=== PATIENT | male | born 2000 | race Asian ===

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

== ENCOUNTER 2022-10-23 07:46 | Outpatient (REF) | payer OTHER, SELFPAY ==
[2022-10-23 08:14] LABS: MANUAL DIFF FLAG NO
[2022-10-23 08:35] LABS: Basophils Absolute Auto 0.1 X10*3/uL (0.0-0.2); Basophils Percent Auto 0.5 % (0-2); Eosinophils Absolute Auto 0.3 X10*3/uL (0.0-0.4); Eosinophils Percent Auto 2.6 % (0-4); Hematocrit 54.1 % (42.0-52.0); Hemoglobin 18.7 g/dl (14.0-18.0); Imm Gran Abs Auto 0.03 X10*3/uL (0.00-0.03); Imm Gran Pct Auto 0.3 % (0.0-0.4); Lymphocytes Absolute Auto 2.3 X10*3/uL (1.2-4.9); Lymphocytes Percent Auto 22.1 % (20-40); Mean Corpuscular HGB Conc 34.6 g/dl (31.0-36.0); Mean Corpuscular Hemoglobin 28.9 pg (27.0-33.0); Mean Corpuscular Volume 83.7 fL (80.0-98.0); Mean Platelet Volume 9.9 fL (9.4-12.4); Monocytes Absolute Auto 0.8 X10*3/uL (0.1-1.2); Monocytes Percent Auto 7.6 % (2-11); Neutrophils Absolute Auto 7.1 x10*3/uL (2.0-8.3); Neutrophils Percent Auto 66.9 % (45-73); Platelet Count 256 X10*3/uL (160-400); Red Blood Count 6.46 X10*6/uL (4.60-5.80); Red Cell Distribution Width 12.1 % (11.0-16.0); White Blood Count 10.6 X10*3/uL (4.8-10.8)
[2022-10-23 09:14] LABS: Alanine Aminotransferase 31 U/L (0-40); Albumin Level 4.7 g/dL (3.5-5.0); Alkaline Phosphatase 92 U/L (39-117); Anion Gap 14 (12-20); Aspartate Amino Transferase 20 U/L (5-37); Blood Urea Nitrogen 11 mg/dL (9-16); Calcium 9.8 mg/dL (8.4-10.2); Carbon Dioxide 27 mmol/L (22-29); Chloride 102 mmol/L (96-108); Cholesterol 214 mg/dL; Estimated Glomerular Filt Rate > 60; Glucose Fasting 90 mg/dL (60-99); HDL Cholesterol 39 mg/dL; LDL Cholesterol Calculated 151 mg/dl; Potassium 4.2 mmol/L (3.3-5.1); Sodium 139 mmol/L (135-145); Total Protein 8.1 g/dL (6.5-8.0); Triglycerides 121 mg/dL
[2022-10-23 09:22] LABS: Appearance Urine Clear; Color Urine Yellow; Glucose Urine UA Negative (Negative); Leukocyte Esterase Urine Negative (Negative); Nitrite Urine Negative (Negative); PH 5.5 (5.0-9.0); Specific Gravity - Urine 1.025 (1.005-1.025); Urine Blood Negative (Negative); Urine Ketones Negative (Negative); Urine Protein Trace mg/dL (Neg-Trace)
[2022-10-23 09:36] LABS: TSH reflex Free T4 1.89 uIU/mL (0.32-4.0)
== END 2022-10-23 07:47 | disposition home or self-care (01) ==
LOC: HO.LAB 07:46
PROVIDERS: PCP Nurse Practitioner Family; Visit Provider Nurse Practitioner Family
DX: Z00.00 Encounter for general adult medical examination without abnormal findings (principal)
CPT/HCPCS: 36415; 80053; 80061; 81003; 84443; 85025

== ENCOUNTER 2022-11-04 12:07 | Outpatient (REF) | payer OTHER, SELFPAY ==
--- NOTE | ~2022-11-04 | XR_ITS ---
EXAMINATION: XR FOOT, LEFT CLINICAL INFORMATION: Left foot pain COMPARISON: None TECHNIQUE: AP, lateral, and oblique views of the left foot. FINDINGS: The bones and soft tissues are normal. No fracture. Alignment is anatomic. Joint spaces are maintained. XR/XR foot LT min 3V IMPRESSION: Normal left foot.
[2022-11-04 14:34] LABS: Uric Acid 8.7 mg/dL (3.4-7.0)
== END 2022-11-04 12:08 | disposition home or self-care (01) ==
LOC: HO.HMGCX 12:07
PROVIDERS: PCP Nurse Practitioner Family; Visit Provider Nurse Practitioner Family
DX: M79.672 Pain in left foot (principal)
CPT/HCPCS: 36415; 73630; 84550

== ENCOUNTER 2023-05-10 16:03 | Outpatient (AMB) | payer OTHER, SELFPAY ==
[2023-05-10 16:11] VITALS: BP 112/76; PULSE 90; TEMP 36.3; O2SAT 94; BMI 27.7
--- NOTE | 2023-05-10 16:11 | AM.OFFWIN_ITS ---
Intake Vital Signs 05/10/23 16:11 Height 5 ft 2 in Weight 151 lb 8 oz BMI 27.7 BP 112/76 Blood Pressure Location Lt brachial Position Sitting Pulse 90 Pulse Source Pulse Oximeter Temp 97.4 F Temp Source Oral Pulse Oximetry (%) 94 Oxygen Delivery Method Room Air Intake Visit Reasons: EST/allergies, rash under right arm Intake Note: Pt is here today for rash under Rt arm Patient Tobacco Use Status: Never used Tobacco Allergies No Known Allergies Allergy (Verified 05/11/23 16:10) Medication List - Last Reconciled 05/11/23 by Peña Little MD benzoyl peroxide 10% (BP Wash) topical BID betamethasone dipropionate 0.05% appl topical clindamycin phosphate 1% 1 appl topical BID hydroxyzine HCl 0 mg PO minocycline 100 mg PO BID tretinoin 0.05% appl topical HPI EST/allergies, rash under right arm HPI Details 22-year-old male presents to the office for a sick visit. He would like to have the rash under his armpit evaluated. He has had the rash for 3 months or more. During the summer months it is itchy. Patient reports he has had her rashes for many years and attributed to allergies. He has cystic acne all over his upper body but has not seen a industrial maintenance tech recently. [facility] Medical History Acne Cerumen impaction Keloidal acne Family History Mother No problems noted. Father HTN (hypertension) Stroke Social History Housing: House Alcohol intake: never Patient Tobacco Use Status: Never used Tobacco e-Cigarette/Vaping Use: Never Used Second Hand Smoke Exposure: No service: No Current occupational status: employed Current occupation: Always Pre[employer] Current occupational exposures/hazards: Yes Cognitive needs: No Hearing needs: No Vision needs: No Physical Exam Vital Signs: Last Vital Signs Temp 97.4 F 05/10/23 16:11 Pulse 90 05/10/23 16:11 BP 112/76 05/10/23 16:11 Pulse Ox 94 05/10/23 16:11 Oxygen Delivery Method Room Air 08/08/23 16:11 BMI result Body Mass Index 27.7 Skin Other: Right axilla: brownish macular rash, extensive. There is extensive cystic acne in addition all over his abdomen and back. There is scarring and keloid formation over the right shoulder. Assessment & Plan Assessment & Plan (1) Rash: Code(s): R21 - Rash and other nonspecific skin eruption Plan: Patient was advised to get a industrial maintenance tech appointment for a skin biopsy. This condition is chronic and no immediate intervention is needed. Patient reported that he has a industrial maintenance tech and will get an appointment soon. Coding Level of Care Code Est Pt Level 3 (85472) Diagnoses Rash R21
== END 2023-05-10 16:41 | disposition home or self-care (01) ==
PROVIDERS: PCP Nurse Practitioner Family; Visit Provider Internal Medicine
DX: R21 Rash and other nonspecific skin eruption (principal)
CPT/HCPCS: 99213

== ENCOUNTER 2023-06-08 14:38 | Outpatient (REF) | payer OTHER, SELFPAY ==
[2023-06-08 15:57] LABS: MANUAL DIFF FLAG NO
[2023-06-08 16:22] LABS: Basophils Percent Auto 0.4 % (0-2); Eosinophils Absolute Auto 0.4 X10*3/uL (0.0-0.4); Eosinophils Percent Auto 5.4 % (0-4); Hemoglobin 16.7 g/dl (14.0-18.0); Imm Gran Abs Auto 0.03 X10*3/uL (0.00-0.03); Imm Gran Pct Auto 0.4 % (0.0-0.4); Mean Corpuscular HGB Conc 34.8 g/dl (31.0-36.0); Mean Corpuscular Hemoglobin 30.4 pg (27.0-33.0); Mean Corpuscular Volume 87.3 fL (80.0-98.0); Mean Platelet Volume 10.3 fL (9.4-12.4); Monocytes Absolute Auto 0.8 X10*3/uL (0.1-1.2); Monocytes Percent Auto 10.9 % (2-11); Neutrophils Absolute Auto 4.4 x10*3/uL (2.0-8.3); Neutrophils Percent Auto 56.9 % (45-73); Platelet Count 259 X10*3/uL (160-400); Red Cell Distribution Width 12.1 % (11.0-16.0); White Blood Count 7.6 X10*3/uL (4.8-10.8)
[2023-06-08 16:27] LABS: Immature Retic Fraction 6.8 % (2.3-13.4); Retic HGB Equivalent 35.5 pg (30.0-35.0); Reticulocyte Percent 1.9 % (0.5-1.8); Reticulocytes Absolute 0.103 X10*6/uL (0.026-0.095)
[2023-06-08 16:52] LABS: Uric Acid 8.7 mg/dL (3.4-7.0)
[2023-06-10 01:38] LABS: Erythropoietin (EPO) 14.7 mIU/mL (2.6-18.5)
== END 2023-06-08 14:39 | disposition home or self-care (01) ==
LOC: HO.HMGCLDS 14:38
PROVIDERS: PCP Nurse Practitioner Family; Visit Provider Nurse Practitioner Family
DX: Z00.00 Encounter for general adult medical examination without abnormal findings (principal); M10.9 Gout, unspecified; D75.1 Secondary polycythemia
CPT/HCPCS: 36415; 82668; 84550; 85025; 85045

== ENCOUNTER 2023-06-08 15:06 | Outpatient (AMB) | payer OTHER, SELFPAY ==
[2023-06-08 15:23] VITALS: BP 122/86; PULSE 97; O2SAT 97; BMI 28.5
--- NOTE | 2023-06-08 15:23 | MHC.PC.OV ---
Vital Signs 06/08/23 15:23 Height 5 ft 2 in Weight 156 lb BMI 28.5 BP 122/86 Blood Pressure Location Lt brachial Position Sitting Pulse 97 Pulse Source Pulse Oximeter Pulse Oximetry (%) 97 Oxygen Delivery Method Room Air Intake Visit Reasons: PE Allergies No Known Allergies Allergy (Verified 06/08/23 15:26) Tobacco use date assessed: 06/08/23 Dental Screening Dental Screen Date: 06/08/23 Did you have a dental visit in the last 12 months?: Yes Did you have a dental problem in the last 6 months where you did not have access to dental care?: No Was dental information given to patient?: Patient has dentist HPI PE HPI Details Pt is here for a PE. Will order labs. Pt reports macular reddish blotching to his axillary regions and LUQ region. This does itch. He reports that this is worse with certain foods, environmental changes, and temperature changes. denies s/s of anaphylaxis. Hydroxyzine does help. Pt sees a golf course keeper, will refer to asphalt paving foreman. He does receive kenalog injections for keloid formations to his upper torso. [facility] Medical History Acne Cerumen impaction Keloidal acne Family History Mother No problems noted. Father HTN (hypertension) Stroke Social History Housing: House Alcohol intake: never Patient Tobacco Use Status: Never used Tobacco e-Cigarette/Vaping Use: Never Used Second Hand Smoke Exposure: No service: No Current occupational status: employed Current occupation: [employer] Current occupational exposures/hazards: Yes Cognitive needs: No Hearing needs: No Vision needs: No Questionnaire Thrive Questionnaire Date Thrive assessed: 03/31/22 MAURICE-7 AMB Questionnaire MAURICE-7 Date MAURICE - 7 assessed: 03/31/22 Source: Developed by Drs. Mu Fritz, Izzy Palma, Pavel Loyd and colleagues, with an educational ginger from [employer]. Review of Systems Const Denies chills and Denies fever(s) Eyes Denies blurry vision ENT Denies vertigo, Denies dizziness and Denies sore throat Card Denies chest pain at rest, Denies chest pain with activity, Denies diaphoresis, Denies dyspnea and Denies dyspnea on exertion Resp Denies cough, Denies dyspnea, Denies dyspnea on exertion and Denies wheezing GI Denies abdominal pain, Denies melena, Denies hematochezia, Denies constipation, Denies diarrhea and Denies loose stools Denies hematuria Musc Denies numbness and Denies tingling Skin/Breast Denies lesions Neuro Denies vertigo, Denies dizziness, Denies numbness and Denies tingling Psych Denies anxiety, Denies depression, Denies homicidal ideation, Denies suicidal ideation and Denies other (substance abuse) Aller/Immun Denies wheezing Physical exam (Primary Care) Vital Signs: Last Vital Signs Pulse 97 06/08/23 15:23 BP 122/86 06/08/23 15:23 Pulse Ox 97 06/08/23 15:23 Oxygen Delivery Method Room Air 06/08/23 15:23 BMI result Body Mass Index 28.5 Tobacco/Smoking Status: Tobacco use Status Tobacco use date assessed 06/08/23 06/08/23 15:30 Patient Tobacco Use Status Never used Tobacco 06/08/23 15:24 e-Cigarette/Vaping Use Never Used 06/08/23 15:24 Thrive Assessment: Date of Thrive Assessment Date Thrive assessed 03/31/22 06/08/23 15:24 Const General: cooperative Nutritional Appearance: well nourished Orientation/consciousness: patient oriented x3 HENMT Head: Yes normal to inspection, Yes normocephalic and Yes atraumatic Ears: TM's normal bilaterally Eyes General: appearance normal, both eyes and all related structures Alignment and Position: alignment normal and position normal Neck Neck: Yes normal visual inspection and Yes no lymphadenopathy Thyroid: Thyroid normal Resp Effort & Inspection: normal respiratory effort Auscultation: clear to auscultation bilaterally Cardio Rate: regular rate Rhythm: regular rhythm Heart sounds: S1 normal heart sound present, S2 normal heart sound present and no murmurs GI Palpation (GI): Soft to palpation and nontender Auscultation: normal bowel sounds Male General Exam: Yes normal external exam Penis: normal penis Scrotum: scrotum normal, testes descended bilaterally and no inguinal hernias Testes: no testicular mass Skin Other: extensive keloid scarring throughout entire upper torso, macular reddish blotching to axilary regions and LUQ region Rashes: no rashes Neuro General: patient oriented x3, moves all extremities, no focal motor deficits and deep tendon reflexes 2+ bilaterally Romberg Test: Negative Psych Appearance: grossly normal Mental Status: mental status grossly normal Speech and movement: Normal speech and movement present Affect: normal affect Attitude: cooperative Thought process: Normal thought process present Thought content: Normal thought content present Insight: Good insight present (Psych) Judgement: Good judgement present (Psych) Assessment and Plan Assessment & Plan (1) Physical exam: Code(s): Z00.00 - Encounter for general adult medical examination without abnormal findings Plan: Labs ordered (2) Rash: Code(s): R21 - Rash and other nonspecific skin eruption Plan: Referred to asphalt paving foreman (3) Multiple environmental allergies: Code(s): Z91.09 - Other allergy status, other than to drugs and biological substances Plan: Referred to asphalt paving foreman (4) Food allergy: Code(s): Z91.018 - Allergy to other foods Plan: Referred to asphalt paving foreman Plan The patient agreed to the use of a emergency medicine medical director for this encounter. Scribed for DEJA Potts-KYLE by Ju Cui emergency medicine medical director, on 06/08/2023 at 15:30 EST. Orders: Orders Comprehensive [place]. Panel Fast Today Z00.00 - Encounter for general adult medical examination without abnormal findings Lipid Panel Today Z00.00 - Encounter for general adult medical examination without abnormal findings TSH reflex Free T4 Today Z00.00 - Encounter for general adult medical examination without abnormal findings UA CC w/rflx Micro + Cult Today Z00.00 - Encounter for general adult medical examination without abnormal findings Referrals Allergy & Immunology Referral R21 - Rash and other nonspecific skin eruption, Z91.018 - Allergy to other foods, Z91.09 - Other allergy status, other than to drugs and biological substances Coding Level of Care Code Est Pt Prev Care 18-39y(57700) Diagnoses Physical exam Z00.00 Rash R21 Multiple environmental allergies Z91.09 Food allergy Z91.018
== END 2023-06-08 16:15 | disposition home or self-care (01) ==
PROVIDERS: Visit Provider Nurse Practitioner Family
DX: Z00.00 Encounter for general adult medical examination without abnormal findings (principal); R21 Rash and other nonspecific skin eruption; Z91.09 Other allergy status, other than to drugs and biological substances; Z91.018 Allergy to other foods
CPT/HCPCS: 99395

== ENCOUNTER 2024-08-25 09:00 | Outpatient (REF) | payer OTHER, SELFPAY ==
[2024-08-25 09:19] LABS: MANUAL DIFF FLAG NO
[2024-08-25 10:23] LABS: Basophils Absolute Auto 0.1 X10*3/uL (0.0-0.2); Basophils Percent Auto 0.9 % (0-2); Eosinophils Absolute Auto 0.5 X10*3/uL (0.0-0.4); Eosinophils Percent Auto 7.7 % (0-4); Hematocrit 50.9 % (42.0-52.0); Hemoglobin 17.7 g/dl (14.0-18.0); Imm Gran Abs Auto 0.03 X10*3/uL (0.00-0.03); Imm Gran Pct Auto 0.5 % (0.0-0.4); Lymphocytes Absolute Auto 1.6 X10*3/uL (1.2-4.9); Lymphocytes Percent Auto 26.9 % (20-40); Mean Corpuscular HGB Conc 34.8 g/dl (31.0-36.0); Mean Corpuscular Hemoglobin 30.1 pg (27.0-33.0); Mean Corpuscular Volume 86.4 fL (80.0-98.0); Mean Platelet Volume 10.3 fL (9.4-12.4); Monocytes Absolute Auto 0.4 X10*3/uL (0.1-1.2); Neutrophils Absolute Auto 3.4 x10*3/uL (2.0-8.3); Platelet Count 217 X10*3/uL (160-400); Red Blood Count 5.89 X10*6/uL (4.60-5.80); Red Cell Distribution Width 12.1 % (11.0-16.0); White Blood Count 5.9 X10*3/uL (4.8-10.8)
[2024-08-25 10:42] LABS: Appearance Urine Clear; Color Urine Yellow; Glucose Urine UA Negative (Negative); Leukocyte Esterase Urine Negative (Negative); Nitrite Urine Negative (Negative); PH 5.5 (5.0-9.0); Urine Blood Negative (Negative); Urine Ketones Negative (Negative); Urine Protein Negative (Neg-Trace)
[2024-08-25 11:00] LABS: Erythrocyte Sedimentation Rate 2 MM/HR (0-15)
[2024-08-25 11:30] LABS: Alanine Aminotransferase 38 U/L (0-40); Albumin Level 4.6 g/dL (3.5-5.0); Alkaline Phosphatase 83 U/L (39-117); Anion Gap 13 (12-20); Aspartate Amino Transferase 27 U/L (5-37); Bilirubin Total 0.5 mg/dL (0.0-1.0); Blood Urea Nitrogen 12 mg/dL (9-16); Calcium 9.6 mg/dL (8.4-10.2); Carbon Dioxide 28 mmol/L (22-29); Chloride 102 mmol/L (96-108); Cholesterol 194 mg/dL (<200); Estimated Glomerular Filt Rate > 60; Glucose Fasting 81 mg/dL (60-99); HDL Cholesterol 52 mg/dL (>40); LDL Cholesterol Calculated 122 mg/dL (<100); Potassium 4.3 mmol/L (3.3-5.1); Sodium 139 mmol/L (135-145); TSH reflex Free T4 0.87 uIU/mL (0.32-4.0); Total Protein 7.8 g/dL (6.5-8.0); Triglycerides 104 mg/dL (<150)
[2024-08-25 11:40] LABS: Uric Acid 8.8 mg/dL (3.4-7.0)
[2024-08-25 11:48] LABS: Vitamin D 25-OH Total 10.2 ng/mL (>30)
== END 2024-08-25 09:01 | disposition home or self-care (01) ==
LOC: HO.LAB 09:00
PROVIDERS: PCP Internal Medicine; Visit Provider Internal Medicine
DX: D64.9 Anemia, unspecified (principal); E78.00 Pure hypercholesterolemia, unspecified; M10.9 Gout, unspecified; E55.9 Vitamin D deficiency, unspecified; M25.50 Pain in unspecified joint; R30.0 Dysuria
CPT/HCPCS: 36415; 80053; 80061; 81003; 82306; 84443; 84550; 85025; 85652

== ENCOUNTER 2025-01-02 06:41 | Outpatient (REF) | payer BC, SELFPAY ==
[2025-01-02 06:51] LABS: MANUAL DIFF FLAG NO
[2025-01-02 07:41] LABS: Basophils Absolute Auto 0.1 X10*3/uL (0.0-0.2); Basophils Percent Auto 0.7 % (0-2); Eosinophils Absolute Auto 0.4 X10*3/uL (0.0-0.4); Eosinophils Percent Auto 4.7 % (0-4); Hemoglobin 17.2 g/dl (14.0-18.0); Imm Gran Abs Auto 0.02 X10*3/uL (0.00-0.03); Imm Gran Pct Auto 0.3 % (0.0-0.4); Lymphocytes Percent Auto 26.7 % (20-40); Mean Corpuscular HGB Conc 34.4 g/dl (31.0-36.0); Mean Corpuscular Hemoglobin 29.7 pg (27.0-33.0); Mean Corpuscular Volume 86.2 fL (80.0-98.0); Mean Platelet Volume 10.1 fL (9.4-12.4); Monocytes Absolute Auto 0.6 X10*3/uL (0.1-1.2); Monocytes Percent Auto 7.9 % (2-11); Neutrophils Absolute Auto 4.5 x10*3/uL (2.0-8.3); Neutrophils Percent Auto 59.7 % (45-73); Platelet Count 260 X10*3/uL (160-400); Red Cell Distribution Width 11.9 % (11.0-16.0); White Blood Count 7.5 X10*3/uL (4.8-10.8)
[2025-01-02 08:15] LABS: Alanine Aminotransferase 27 U/L (0-40); Albumin Level 4.4 g/dL (3.5-5.0); Alkaline Phosphatase 70 U/L (39-117); Anion Gap 10 (12-20); Aspartate Amino Transferase 22 U/L (5-37); Bilirubin Total 0.5 mg/dL (0.0-1.0); Blood Urea Nitrogen 11 mg/dL (9-16); Calcium 9.3 mg/dL (8.4-10.2); Carbon Dioxide 26 mmol/L (22-29); Chloride 106 mmol/L (96-108); Cholesterol 145 mg/dL (<200); Estimated Glomerular Filt Rate > 60; Glucose Fasting 97 mg/dL (60-99); HDL Cholesterol 35 mg/dL (>40); LDL Cholesterol Calculated 97 mg/dL (<100); Potassium 3.9 mmol/L (3.3-5.1); Sodium 138 mmol/L (135-145); Total Protein 7.4 g/dL (6.5-8.0); Triglycerides 68 mg/dL (<150); Uric Acid 9.4 mg/dL (3.4-7.0)
[2025-01-02 08:24] LABS: Appearance Urine Clear; Color Urine Yellow; Glucose Urine UA Negative (Negative); Leukocyte Esterase Urine Negative (Negative); Nitrite Urine Negative (Negative); Specific Gravity - Urine >= 1.030 (1.005-1.025); Urine Blood Negative (Negative); Urine Ketones Negative (Negative); Urine Protein Negative (Neg-Trace)
[2025-01-02 08:45] LABS: TSH reflex Free T4 1.12 uIU/mL (0.32-4.0); Vitamin D 25-OH Total 10.4 ng/mL (>30)
== END 2025-01-02 06:42 | disposition home or self-care (01) ==
LOC: HO.LAB 06:41
PROVIDERS: PCP Internal Medicine; Visit Provider Internal Medicine
DX: Z00.00 Encounter for general adult medical examination without abnormal findings (principal); E78.00 Pure hypercholesterolemia, unspecified; M10.9 Gout, unspecified; R30.0 Dysuria; E55.9 Vitamin D deficiency, unspecified; D64.9 Anemia, unspecified
CPT/HCPCS: 36415; 80053; 80061; 81003; 82306; 84443; 84550; 85025

== ENCOUNTER 2025-01-03 10:44 | Outpatient (AMB) | payer BC, SELFPAY ==
--- NOTE | 2025-01-03 11:08 | MHC.PC.OV ---
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 Accompanied by: Self / Same As Patient Allergies No Known Allergies Allergy (Verified 01/03/25 11:31) Medication List - Last Reconciled 01/03/25 by Monica Davis PA-C benzoyl peroxide 10% (BP Wash) topical BID clindamycin phosphate 1% 1 appl topical BID tretinoin 0.05% appl topical Tobacco use date assessed: 01/03/25 Dental Screening Dental Screen Date: 01/03/25 Did you have a dental visit in the last 12 months?: No Did you have a dental problem in the last 6 months where you did not have access to dental care?: No PFSH Medical History (Updated 01/03/25 @ 12:01 by Monica Davis PA-C) Depression Obesity (BMI 30-39.9) High blood uric acid level Vitamin D deficiency Cerumen impaction Keloidal acne Surgical History No pertinent past surgical history Family History Mother No problems noted. Father HTN (hypertension) Stroke Social History Housing: House Alcohol intake: never Patient Tobacco Use Status: Never used Tobacco e-Cigarette/Vaping Use: Never Used Second Hand Smoke Exposure: No service: No Current occupational status: employed Current occupation: [employer] Current occupational exposures/hazards: Yes Cognitive needs: No Hearing needs: No Vision needs: No Questionnaire PHQ-9 Over the last 2 weeks, how often have you been bothered by any of the following problems? 1. Little interest or pleasure in doing things: not at all 2. Feeling down, depressed, or hopeless: not at all 3. Trouble falling or staying asleep, or sleeping too much: several days 4. Feeling tired or having little energy: several days 5. Poor appetite or overeating: more than half the days 6. Feeling bad about yourself - or that you are a failure or have let yourself or your family down: more than half the days 7. Trouble concentrating on things, such as reading the newspaper or watching television: several days 8. Moving or speaking so slowly that other people could have noticed. Or the opposite - being so fidgety or restless that you have been moving around a lot more than usual: several days 9. Thoughts that you would be better off or of hurting yourself in some way: several days Total score: 9 Depression Screening Interpretation: Positive Depression Screening Follow-up: Declines treatment Depression Screening Done: Yes 37741 - PHQ-9 Billing: Yes Source: Developed by Drs. Mu Fritz, Izzy Palma, Pavel Loyd and colleagues, with an educational ginger from [employer]. Thrive Questionnaire Date Thrive assessed: 01/03/25 I am a: Patient What is your living situation today?: I have a steady place to live Within the past 12 months, did the food you bought not last and you didn't have the money to get more?: I choose not to answer this question Within the past 12 months, did you worry whether your food would run out before you got money to buy more?: I choose not to answer this question Do you have trouble paying for medicines?: No Do you have trouble getting transportation to medical appointments?: No Do you have trouble paying your heating and electricity bill?: No Do you have trouble taking care of your child, family member or friend?: No Do you have trouble with day-to-day activities such as bathing, preparing meals, shopping, managing finances, etc.?: No Are you currently unemployed and looking for a job?: No Are you interested in more education?: No Please select the resources that you would like help with: None Currently or been in a relationship where the following occur: No concerns reported and I choose not to answer THRIVE Score: 0 AUDIT C Alcohol Use Questionnaire (AUDIT-C) 1. How often do you have a drink containing alcohol?: Never Total Score: 0 Score Reviewed/Action Taken: No MAURICE-7 AMB Questionnaire MAURICE-7 Date MAURICE - 7 assessed: 01/03/25 Feeling nervous, anxious, or on edge: 0 = Not at all Not being able to stop or control worryin = Several days Worrying too much about different things: 1 = Several days Trouble relaxin = Several days Being so restless that it is hard to sit still: 1 = Several days Becoming easily annoyed or irritable: 1 = Several days Feeling afraid as if something awful might happen: 1 = Several days Total MAURICE-7 score (0-4 normal; 5-9 mild; 10-14 moderate; 15-21 severe): 6 Source: Developed by Drs. Mu Fritz, Izzy Palma, Pavel Loyd and colleagues, with an educational ginger from [employer]. MAURICE-7 Assessment Billing MAURICE-7 Assessment Tool: MAURICE-7 Assessment 00839 Physical exam (Primary Care) Vital Signs: Last Vital Signs Temp 97.5 F 01/03/25 11:12 Pulse 63 01/03/25 11:12 Resp 20 01/03/25 11:12 BP 116/78 01/03/25 11:12 Pulse Ox 99 01/03/25 11:12 Oxygen Delivery Method Room Air 01/03/25 11:12 Care Plan Goal for BP management: <130/80 at Goal BMI result Body Mass Index 30.6 BMI Assessment/Plan discussion: High BMI High, discussed plan: lifestyle, weight reduction, dietary, physical activity and alcohol moderation Tobacco/Smoking Status: Tobacco use Status Tobacco use date assessed 01/03/25 01/03/25 11:16 Patient Tobacco Use Status Never used Tobacco 01/03/25 11:10 e-Cigarette/Vaping Use Never Used 01/03/25 11:10 PHQ-9: PHQ-9 Score PHQ-9: Total score 9 01/03/25 11:35 Depression Screening Interpretation: Positive Depression Screening Follow-up: Declines treatment Thrive Assessment: Date of Thrive Assessment Date Thrive assessed 01/03/25 01/03/25 11:16 Currently or been in a relationship where the following occur: No concerns reported and I choose not to answer Results AMB Hemoglobin A1c AMB Hemoglobin A1c 4.9 % Last Edit by Maile Wiseman CMA on 01/03/25 11:55 Coding Level of Care Code Est Pt Level 4 (13951) Est Pt Prev Care 18-39y(79326) Diagnoses Annual physical exam Z00.00 Keloidal acne L73.0 Gout M10.9 Vitamin D deficiency E55.9 High blood uric acid level E79.0 Depression F32.A Obesity (BMI 30-39.9) E66.9 Additional Codes MAURICE-7 Assessment Billing - MAURICE-7 Assessment Tool: MAURICE-7 Assessment 47617 ([id number]) PHQ-9 - 26355 - PHQ-9 Billing: Yes ([id number]) Assessment & Plan Assessment & Plan (1) Annual physical exam: Code(s): Z00.00 - Encounter for general adult medical examination without abnormal findings Category: Medical (2) Keloidal acne: Code(s): L73.0 - Acne keloid Category: Medical Plan: Patient to re-establish care with a fashion photographer to manage these conditions effectively. No acute intervention needed at this time in primary care. (3) Gout: Code(s): M10.9 - Gout, unspecified Category: Medical Plan: Initiated allopurinol 100 mg daily for long-term management of gout to lower uric acid levels. Patient is educated on monitoring gout symptoms and will be followed up in one month to assess response. Prednisone prescribed for acute flare-ups. Referral to rheumatology placed for further specialized management. (4) Vitamin D deficiency: Code(s): E55.9 - Vitamin D deficiency, unspecified Category: Medical Plan: Prescribed daily vitamin D supplementation due to observed deficiency. This is pivotal to correct levels, especially given decreased sun exposure during winter. (5) High blood uric acid level: Code(s): E79.0 - Hyperuricemia without signs of inflammatory arthritis and tophaceous disease Category: Medical Plan: Initiated allopurinol 100 mg daily for long-term management of gout to lower uric acid levels. Patient is educated on monitoring gout symptoms and will be followed up in one month to assess response. Prednisone prescribed for acute flare-ups. Referral to rheumatology placed for further specialized management. (6) Depression: Code(s): F32.A - Depression, unspecified Category: Medical Plan: No current intervention required. Symptoms resolved and patient is stable without need for psychiatric resources at this moment. (7) Obesity (BMI 30-39.9): Code(s): E66.9 - Obesity, unspecified Category: Medical Plan: Patient to improve his diet and exercise regimen. Condition is chronic and stable continue to monitor. Plan Plan Patient was informed and verbally consented to the use of an ambient scribe for clinic note documentation during this visit. 1. Gout Initiated allopurinol 100 mg daily for long-term management of gout to lower uric acid levels. Patient is educated on monitoring gout symptoms and will be followed up in one month to assess response. Prednisone prescribed for acute flare-ups. Referral to rheumatology placed for further specialized management. 2. Depressive Symptoms Historical, Resolved No current intervention required. Symptoms resolved and patient is stable without need for psychiatric resources at this moment. 3. Vitamin D Deficiency Prescribed daily vitamin D supplementation due to observed deficiency. This is pivotal to correct levels, especially given decreased sun exposure during winter. 4. Acne keloid Patient to re-establish care with a fashion photographer to manage these conditions effectively. No acute intervention needed at this time in primary care. 5. Routine Examination Comprehensive lab review and preventive screenings completed during visit. Noted lifestyle adjustments encouraged to support health maintenance. A follow-up in one month or telehealth session arranged to monitor the response to the new management plan. Discussion Notes During this visit, I discussed with the patient his likely diagnosis of gout and its management plan. We reviewed the initiation of allopurinol to prevent future flare-ups, and prednisone as an option for acute management. We discussed possible lifestyle interventions, like dietary adjustments and the need for regular hydration to help manage symptoms. The implications of elevated uric acid levels were explained, along with the benefits of referral to rheumatology for specialized care. I discussed his low vitamin D level and the necessity of supplementation. Based on his lab work results, I reassured him about his excellent A1c level of 4.9, indicating no immediate risk of diabetes, which aligns with the absence of any history of elevated blood glucose. His interest in dermatological follow-up for acne and keloids was encouraged to resume due to a resolution of insurance issues. I emphasized the importance of regular health maintenance inspections and encouraged continuation of physical activities while addressing any questions he had regarding the procedures or outcomes, such as the benefit of seeing a transfer man early for gout management. Orders: Orders AMB Hemoglobin A1c Today Z13.9 - Encounter for screening, unspecified PSA,Total (Free>4and<10) Today Z00.00 - Encounter for general adult medical examination without abnormal findings Referrals Rheumatology Referral E79.0 - Hyperuricemia without signs of inflammatory arthritis and tophaceous disease, M10.9 - Gout, unspecified Medications: New allopurinol 100 mg PO DAILY 30 tabs 0RF E79.0 - Hyperuricemia without signs of inflammatory arthritis and tophaceous disease, M10.9 - Gout, unspecified cholecalciferol (vitamin D3) 25 mcg PO DAILY 90 caps 1RF E55.9 - Vitamin D deficiency, unspecified prednisone 40 mg (2 x 20 mg) PO DAILY 5 days 10 tabs 0RF Patient Instructions: Patient Instructions - Take allopurinol 100 mg once daily to manage uric acid levels and prevent gout flare-ups. - Use prednisone as directed for acute flare-ups of gout. - Begin daily vitamin D supplementation as advised. - Follow up with a fashion photographer for acne and keloids as insurance issues are resolved. - Schedule a follow-up visit in one month to reassess the management of gout and related symptoms. This can be done via telehealth. - Continue regular exercise and maintain a balanced diet as discussed. - Sign up for the patient portal to facilitate easy communication for any health concerns or prescription needs. - Go to the hospital or laboratory for scheduled PSA test and any additional tests as discussed. Scribe Plan - Not visible on output: History of Present Illness The patient is a 24-year-old male presenting with an annual physical examination. In addition he would like to discuss management of gout. He has a history of gout characterized by joint pain in the left big toe and Right foot during flare-ups. These episodes are attributed to dietary choices and lifestyle factors. Dietary management, including reduced intake of meats and increased hydration, has been employed to manage symptoms. The most recent gout flare occurred two weeks ago and was treated with prednisone. The patient had a temporary sensitivity to dairy, thought to be due to an increase in protein shakes and yogurt, which resolved once his body adjusted. He reports a history of acne and keloids for which he has previously seen a fashion photographer but not recently because of past insurance issues. The patient has a past history of depressive symptoms during his college years, which have since resolved without ongoing treatment. He expresses concern about a potential association between gout and diabetes and wishes to mitigate any risks through lifestyle changes. Social History - Education: Mention of past college attendance. - Exercise: Regular gym attendance, 3-4 times weekly. - Functional status: Able to perform regular activities. - Level of activity: Moderate, regular exercise routine. - Current nutritional intake: Attempting to reduce meats and acids; previous sensitivity to dairy resolved. - Weight management: Past issue with being overweight; has since adjusted diet. Review of Systems - Musculoskeletal: Reports joint pain in left big toe and Right mid foot during gout flare-ups. - Lifestyle/Nutrition: Reports dietary changes with reduced meat and increased hydration. Physical Exam Appearance: Alert. Oriented X3. No acute distress. Head: Normal external exam. Normocephalic. Atraumatic. Eyes: Pupils are equal, round, and reactive to light. Extraocular movements intact. Conjunctiva and sclera normal. Eyelids normal. Ears: External auditory canal normal. Tympanic membranes normal. Throat: Pharynx normal. Uvula midline. Moist mucous membranes. Neck: Normal inspection. Neck supple. Full range of motion. No adenopathy. Thyroid Normal. No meningeal signs. No neck mass noted. Cardiovascular: Normal heart rate and rhythm. Heart sound normal. No murmurs noted. Pulses normal throughout. Respiratory: No respiratory distress. Painless inspiration. Breath sounds normal. No wheezes/rales/rhonchi noted. Chest nontender. No accessory muscle usage noted or decreased air movement noted. Abdomen: Soft and nontender. Bowel sounds normal in all 4 quadrants. No distention noted. No organomegaly noted. No visible injury noted. Back: No costovertebral angle tenderness. Full range of motion noted. Skin: Skin warm and dry. Normal skin color. Normal skin turgor. No rashes/lesions/lacerations noted. Extremities: No lower extremity edema. Extremities exhibit normal range of motion. Extremities nontender. Right foot shows signs of mild redness and inflammation, consistent with recent gout flare-up. Neuro: Oriented X 3. No motor deficit. No sensory deficit. Reflexes normal. Results - Labs: - CBC: Normal - Red blood cells: Normal - Platelets: Normal - Kidney function: Normal - Sodium: Normal - Potassium: Normal - Uric acid: Elevated at 9.4 - Liver enzymes: Normal - Triglycerides: 68 - Total cholesterol: 145 - LDL: 97 - HDL: Reduced at 35 - Thyroid function: Normal - Vitamin D: Low - A1c: 4.9 (well within normal range)
[2025-01-03 11:12] VITALS: BP 116/78; PULSE 63; RESP 20; TEMP 36.4; O2SAT 99; BMI 30.6
== END 2025-01-03 12:00 | disposition home or self-care (01) ==
LOC: HO.HMCH 10:45
PROVIDERS: PCP Internal Medicine; Visit Provider Physician Assistant Medical
DX: Z13.9 Encounter for screening, unspecified (principal)

== ENCOUNTER 2025-01-03 10:44 | Outpatient (REF) | payer BC, SELFPAY | END 2025-01-03 10:45 | disposition home or self-care (01) | LOC: HO.LAB 10:44 | PROVIDERS: PCP Internal Medicine; Visit Provider Physician Assistant Medical | DX: Z00.00 Encounter for general adult medical examination without abnormal findings (principal); Z12.5 Encounter for screening for malignant neoplasm of prostate; L73.0 Acne keloid; M10.9 Gout, unspecified; E55.9 Vitamin D deficiency, unspecified; F32.A Depression, unspecified; E66.9 Obesity, unspecified | CPT/HCPCS: 36415; 83036; 84153; 96127 ==

== ENCOUNTER 2025-02-07 15:30 | Outpatient (AMB) | payer BC, SELFPAY ==
--- NOTE | 2025-02-07 15:31 | A.OFFPC_ITS ---
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 Accompanied by: Self / Same As Patient Allergies No Known Allergies Allergy (Verified 02/07/25 16:05) Medication List - Last Reconciled 02/07/25 by Monica Davis PA-C allopurinol 100 mg PO DAILY benzoyl peroxide 10% (BP Wash) topical BID cetirizine (Zyrtec) 10 mg PO DAILY PRN cholecalciferol (vitamin D3) 25 mcg PO DAILY clindamycin phosphate 1% 1 appl topical BID hydrocortisone 2.5% 1 appl topical BID-TID PRN hydroxyzine HCl 10 mg PO Q8H PRN prednisone 40 mg (2 x 20 mg) PO DAILY 5 days tretinoin 0.05% appl topical Tobacco use date assessed: 01/03/25 Dental Screening Dental Screen Date: 01/03/25 HPI 1 month f/u HPI Details The patient is a 24-year-old male presenting for a follow-up on the management of gout and vitamin D deficiency, and evaluation of seasonal dermatitis. He is compliant with allopurinol 100 mg daily, resulting in well- controlled uric acid levels, with no gout symptoms or medication side effects reported. His vitamin D deficiency is being treated with daily supplements, with plans to reassess levels. Seasonal dermatitis manifests as itchy rashes on his arms and stomach during warmer months. Previous use of hydroxyzine provided control over symptoms, though resulted in drowsiness. [id number] lotions have been insufficient for his current symptoms, and he denies taking other routine allergy medications. [facility] Medical History (Updated 02/07/25 @ 16:11 by Monica Davis PA-C) Dermatitis Depression Obesity (BMI 30-39.9) High blood uric acid level Vitamin D deficiency Cerumen impaction Keloidal acne Surgical History No pertinent past surgical history Family History Mother No problems noted. Father HTN (hypertension) Stroke Social History Housing: House Alcohol intake: never Patient Tobacco Use Status: Never used Tobacco e-Cigarette/Vaping Use: Never Used Second Hand Smoke Exposure: No service: No Current occupational status: employed Current occupation: [employer] Current occupational exposures/hazards: Yes Cognitive needs: No Hearing needs: No Vision needs: No Questionnaire Thrive Questionnaire Date Thrive assessed: 01/03/25 MAURICE-7 AMB Questionnaire MAURICE-7 Date MAURICE - 7 assessed: 01/03/25 Source: Developed by Drs. Mu Fritz, Izzy Palma, Pavel Loyd and colleagues, with an educational ginger from [employer]. Review of Systems Const Details: - Musculoskeletal: Reports well-controlled uric acid levels with no foot pain. - Skin: Reports itchy rashes on arms and stomach during warmer weather. Denies current use of prescribed topical treatments. - Allergies: Denies routine allergy medication use. Physical exam (Primary Care) Tobacco/Smoking Status: Tobacco use Status Tobacco use date assessed 01/03/25 02/07/25 15:32 Patient Tobacco Use Status Never used Tobacco 02/07/25 15:32 e-Cigarette/Vaping Use Never Used 02/07/25 15:32 Thrive Assessment: Date of Thrive Assessment Date Thrive assessed 01/03/25 02/07/25 15:32 Telehealth Telehealth Telehealth Platform: [facility] Location of provider rendering services: practice address Location of patient: address on file Patient Identification confirmed using: Name, : Yes Telehealth method: voice only Patient verbally consented to treatment: Yes Patient verbally consented to billing insurance company: Yes Patient informed of any privacy concerns related to visit: Yes Minutes spent on Phone/Video with Pt.: 15 Coding Level of Care Code Tele New Pt Level 4 (85062) Complex EM visit Add On G2211 Diagnoses Gout M10.9 Vitamin D deficiency E55.9 Dermatitis L30.9 Assessment & Plan Assessment & Plan (1) Gout: Code(s): M10.9 - Gout, unspecified Category: Medical Plan: The patient will continue with allopurinol daily. A blood test will be done to reassess uric acid levels. Is chronic and stable will continue to monitor. (2) Vitamin D deficiency: Code(s): E55.9 - Vitamin D deficiency, unspecified Category: Medical Plan: Continue vitamin D supplementation. The deficiency will be reassessed with blood tests. Condition is chronic and stable continue to monitor. (3) Dermatitis: Code(s): L30.9 - Dermatitis, unspecified Category: Medical Plan: Initiating treatment with a topical steroid cream and daily Zyrtec. Prescribed hydroxyzine and prednisone for severe itching. Condition is stable will continue to monitor. Plan Plan Patient was informed and verbally consented to the use of an ambient scribe for clinic note documentation during this visit. 1. Gout The patient will continue with allopurinol daily. A blood test will be done to reassess uric acid levels. 2. Vitamin D Deficiency Continue vitamin D supplementation. The deficiency will be reassessed with blood tests. 3. Seasonal Dermatitis Initiating treatment with a topical steroid cream and daily Zyrtec. Prescribed hydroxyzine and prednisone for severe itching. During our discussion, I confirmed that the patient should continue taking allopurinol for gout management due to its effectiveness. We discussed the need for bloodwork to reassess uric acid and vitamin D levels, and the patient agreed. For seasonal dermatitis, I recommended a topical steroid and Zyrtec, highlighting that Hydroxyzine should be taken only at home due to its sedative effects. A brief discussion regarding the cautious use of prednisone for severe symptoms was conducted. I advised follow-up appointments within three months, coinciding with seasonal changes, and emphasized calling the main office for scheduling. Consent was obtained for all proposed treatments and management strategies. Orders: Orders Uric Acid Today M10.9 - Gout, unspecified Vitamin D 25-OH Total Today Z00.00 - Encounter for general adult medical examination without abnormal findings Medications: New hydrocortisone 2.5% 1 appl topical BID-TID PRN 454 grams 1RF itching cetirizine (Zyrtec) 10 mg PO DAILY PRN 90 tabs 1RF allergy symptoms hydroxyzine HCl 10 mg PO Q8H PRN 30 tabs 1RF itching Refilled prednisone 40 mg (2 x 20 mg) PO DAILY 5 days 10 tabs 0RF Patient Instructions: - Continue taking allopurinol as prescribed. - Take vitamin D supplements daily. - Use prescribed ointment on rashes after showering. - Take Zyrtec daily for allergies. - Use hydroxyzine for severe itching only when staying at home. - Contact the office to schedule a three-month follow-up. - Seek immediate care if symptoms worsen or new symptoms arise.
== END 2025-02-07 16:28 | disposition home or self-care (01) ==
LOC: HO.HMCH 15:30
PROVIDERS: PCP Internal Medicine; Visit Provider Physician Assistant Medical
DX: M10.9 Gout, unspecified (principal); E55.9 Vitamin D deficiency, unspecified; L30.9 Dermatitis, unspecified

== ENCOUNTER → 2025-02-07 15:30 | Outpatient (BNVA) | payer BC, SELFPAY | PROVIDERS: PCP Internal Medicine; Visit Provider Physician Assistant Medical | DX: M10.9 Gout, unspecified (principal); E55.9 Vitamin D deficiency, unspecified; L30.9 Dermatitis, unspecified; Z79.899 Other long term (current) drug therapy | CPT/HCPCS: 98967 ==

== ENCOUNTER 2025-08-15 11:14 | Outpatient (REF) | payer BC, SELFPAY ==
--- NOTE | ~2025-08-15 | XR_ITS ---
EXAMINATION: XR FOOT, BILATERAL CLINICAL INFORMATION: M10.9 - Gout, unspecified COMPARISON: November 04, 2022 TECHNIQUE: AP, lateral, and oblique views both feet. FINDINGS: No acute cortical disruption or malalignment. No bony erosions. Great toes are normal. No marginal osteophyte formation. There is preservation of the joint spaces. No metallic or radiopaque foreign body. No subcutaneous emphysema. No soft tissue calcifications. No lytic or blastic lesions. No joint effusion. XR/XR Foot Yariel 3V IMPRESSION: Normal x-ray both feet. Negative. Electronically signed by: Sunil Drake MD 08/15/2025 01:48 PM EST
[2025-08-15 17:39] LABS: MANUAL DIFF FLAG NO
[2025-08-15 17:56] LABS: Hematocrit 50.2 % (42.0-52.0); Hemoglobin 17.4 g/dl (14.0-18.0); Imm Gran Abs Auto 0.02 X10*3/uL (0.00-0.03); Imm Gran Pct Auto 0.3 % (0.0-0.4); Lymphocytes Absolute Auto 1.8 X10*3/uL (1.2-4.9); Mean Corpuscular HGB Conc 34.7 g/dl (31.0-36.0); Mean Corpuscular Hemoglobin 29.1 pg (27.0-33.0); Mean Corpuscular Volume 84.1 fL (80.0-98.0); NRBC Abs Auto 0.000 X10*3/uL (0.0-0.012); NRBC Pct Auto 0.0 /100WBC (0.0-0.2); Platelet Count 249 X10*3/uL (160-400); Red Blood Count 5.97 X10*6/uL (4.60-5.80); White Blood Count 7.4 X10*3/uL (4.8-10.8)
[2025-08-15 18:19] LABS: Alanine Aminotransferase 33 U/L (0-40); Aspartate Amino Transferase 27 U/L (5-37); Estimated Glomerular Filt Rate > 60; Uric Acid 8.4 mg/dL (3.4-7.0)
== END 2025-08-15 11:15 | disposition home or self-care (01) ==
LOC: HO.HKASLDS 11:14
PROVIDERS: PCP Internal Medicine; Visit Provider Internal Medicine Rheumatology
DX: M10.9 Gout, unspecified (principal); Z79.899 Other long term (current) drug therapy
CPT/HCPCS: 36415; 73630; 82565; 84450; 84460; 84550; 85025

== ENCOUNTER 2025-08-15 11:14 | Outpatient (AMB) | payer BC, SELFPAY ==
[2025-08-15 11:16] VITALS: BP 120/90; PULSE 93; O2SAT 97; BMI 34.7
--- NOTE | 2025-08-15 11:16 | A.OFFVIS_ITS ---
Vital Signs 08/15/25 11:16 Height 5 ft 2 in Weight 189 lb 13.088 oz BMI 34.7 BP 120/90 H Blood Pressure Location Rt brachial Position Sitting Pulse 93 Pulse Source Pulse Oximeter Pulse Oximetry (%) 97 Oxygen Delivery Method Room Air Intake Visit Reasons: Gout Intake Note: Patient presents today for gout. Accompanied by: Self / Same As Patient Allergies No Known Allergies Allergy (Verified 02/07/25 16:05) Medication List - Last Reconciled 08/15/25 by Mickey Lee MD allopurinol 100 mg PO DAILY benzoyl peroxide 10% (BP Wash) topical BID cetirizine (Zyrtec) 10 mg PO DAILY PRN cholecalciferol (vitamin D3) 25 mcg PO DAILY clindamycin phosphate 1% 1 appl topical BID hydrocortisone 2.5% 1 appl topical BID-TID PRN hydroxyzine HCl 10 mg PO Q8H PRN tretinoin 0.05% appl topical HPI HPI Gout: Details: New patient evaluation for gout. In 2021 he had pain in left first MTP. Denies swelling or warmth or discoloration. In 2022 he had recurrent pain of MTP associated with swelling and warmth. Trigger was alcohol. He stopped drinking alcohol after incident. December or november of 2024 he had swelling of right MTP. In january he had swelling of right midfoot lasting a week with treatment. Prednisone 40mg daily 5 days resolved the episode. He has never had aspiration of his joint to confirmed gout A couple of months ago he was not eating healthy. He has changed his diet and reports that is more healthier. His maternal cousins have gout. He was started allopurinol 01/2025. He has been out of it since last month. He has tolerated allopurinol. He was not started on colchicine with allopurinol. Medication listed medication history reviewed. [facility] Medical History (Updated 08/17/25 @ 21:09 by Mickey Lee MD) Dermatitis Depression Obesity (BMI 30-39.9) High blood uric acid level Vitamin D deficiency Cerumen impaction Keloidal acne Surgical History No pertinent past surgical history Family History Mother No problems noted. Father HTN (hypertension) Stroke Social History Housing: House Alcohol intake: never Patient Tobacco Use Status: Never used Tobacco e-Cigarette/Vaping Use: Never Used Second Hand Smoke Exposure: No service: No Current occupational status: employed Current occupation: [employer] Current occupational exposures/hazards: Yes Cognitive needs: No Hearing needs: No Vision needs: No Physical Exam Vital Signs: Last Vital Signs Pulse 93 08/15/25 11:16 BP 120/90 H 08/15/25 11:16 Pulse Ox 97 08/15/25 11:16 Oxygen Delivery Method Room Air 08/15/25 11:16 BMI result Body Mass Index 34.7 Const Other: General: Comfortable CVS: RRR Respiratory: clear to auscultation bilaterally. Good respiratory effort Skin: No lesions seen MSK: No tender joints. No synovitis. No tophus. Normal range of motion of upper extremities and lower extremities. Assessment & Plan Assessment & Plan (1) Gout: Comment: Presumed presenting with podagra initially in 2021. His most recent episode in january involved his right midfoot, which resolved with a course of prednisone. He was started on allopurinol and has tolerated it but will has been out of it for a month. Urate lowering therapy is indicated due to 2 episodes of presumed gout this year. We discussed next steps in treatment. Uric acid goal is less than 6. I will initiate colchicine as prophylaxis and restart allopurinol if his uric acid is greater than 6. Code(s): M10.9 - Gout, unspecified Category: Medical Plan: Labs ordered X-rays bilateral feet ordered Information on gout and low purine diet given to patient Return to clinic in 3 months Orders: Orders XR Foot Yariel 3V 08/15/25 M10.9 - Gout, unspecified Creatinine 08/15/25 M10.9 - Gout, unspecified Alanine Aminotransferase 08/15/25 M10.9 - Gout, unspecified Uric Acid 08/15/25 M10.9 - Gout, unspecified Aspartate Amino Transferase 08/15/25 M10.9 - Gout, unspecified Complete Blood Count Auto Diff 08/15/25 M10.9 - Gout, unspecified Coding Level of Care Code New Pt Level 4 (25495) Diagnoses Gout M10.9
== END 2025-08-15 11:56 | disposition home or self-care (01) ==
LOC: HO.RHES 11:14
PROVIDERS: PCP Internal Medicine; Visit Provider Internal Medicine Rheumatology
DX: M10.9 Gout, unspecified (principal)
CPT/HCPCS: 99204

== ENCOUNTER → 2025-08-15 12:38 | Outpatient (BNV) | payer BC, SELFPAY | PROVIDERS: PCP Internal Medicine; Visit Provider Radiology Diagnostic Radiology | DX: M10.9 Gout, unspecified (principal) | CPT/HCPCS: 73630 ==